=== PATIENT | male | born 1950 | race Caucasian/White ===

== ENCOUNTER 2017-09-01 16:41 | Inpatient (IN) | payer MEDICARE ==
[~2017-09-01] VITALS: Ht 177.8 cm; Wt 94.4 kg
[2017-09-01] VITALS (8 sets, daily range): BP systolic 122–158; BP diastolic 79–102; PULSE 92–106; RESP 16–20; TEMP 98.1–99.3; O2SAT 96–98
[~2017-09-01 16:41] MED LIST: CLOP75 PO; METO25 PO; NITR.4 SL; ROSU10 PO; ULTR50TA PO; [UNRECOGNIZED DRUG - CODE] PO
[2017-09-01] MEDS ORDERED: SODIUM CHLOR 0.9% 1000 ML INJ 1,000 ML IV SCH (16:54)
--- NOTE | 2017-09-01 16:58 | PD ---
HPI Chief Complaint: Abdominal Pain Time Seen by Provider: 16:54 Travel History International Travel<30 days: No Contact w/Intl Traveler<30days: No Traveled to known affect area: No History of Present Illness HPI 67-year-old male with history of hypertension, CAD, cardiac stent on Plavix, hypercholesterolemia, appendectomy at the age of 15, here for evaluation of abdominal pain/bloating and feeling dehydrated. Symptoms have been going on for the last 18 hours. Pain is currently mild, intermittently worse at times, no modifying factors. He denies fevers or chills. No nausea or vomiting. No urinary symptoms. Last bowel movement was earlier this morning and although appeared darker than normal, he denies melena or hematochezia. Reports that he had a colonoscopy and endoscopy about 5 years ago and reports that it was completely normal. PFSH Past Medical History Cardiovascular Problems: Yes (STENT 03/21/12) Chest Pain: Yes Diabetes: No Diminished Hearing: No Gastrointestinal Disorders: No Genitourinary: Yes (KIDNEY STONES) Hypertension: Yes Kidney Stones: Yes Musculoskeletal: No Neurologic: No Respiratory: No Past Surgical History Appendectomy: Yes Coronary Stent: Yes Other Surgery: Yes (APPENDECTOMY) Social History Alcohol Use: No Tobacco Use: No Substance Use: No Allergies-Medications (Allergen,Severity, Reaction): Coded Allergies: No Known Allergies (Unverified Adverse Reaction, Unknown, 09/01/17) Reported Meds & Prescriptions Reported Meds & Active Scripts Active Reported Amlodipine (Amlodipine Besylate) 5 Mg Tab 5 Mg PO DAILY Carvedilol 25 Mg Tab 25 Mg PO DAILY Carvedilol 12.5 Mg Tab 12.5 Mg PO BID Irbesartan 300 Mg Tab 300 Mg PO DAILY Plavix (Clopidogrel Bisulfate) 75 Mg Tab 75 Mg PO DAILY Rosuvastatin (Rosuvastatin Calcium) 20 Mg Tab 20 Mg PO DAILY Aspirin EC (Aspirin) 81 Mg Tabdr 81 Mg PO DAILY Review of Systems Except as stated in HPI: all other systems reviewed are Neg Physical Exam Narrative GENERAL: Well-developed, well-nourished, comfortable, no apparent distress. SKIN: Focused skin assessment warm/dry. HEAD: Atraumatic. Normocephalic. EYES: Pupils equal and round. Mild scleral icterus. ENT: No nasal bleeding or discharge. Mucous membranes pink and dry. NECK: Trachea midline. No JVD. CARDIOVASCULAR: Regular rate and rhythm. RESPIRATORY: No accessory muscle use. Clear to auscultation. Breath sounds equal bilaterally. GASTROINTESTINAL: Abdomen soft, mild distention with mild diffuse tenderness without peritoneal signs. Normal bowel sounds. MUSCULOSKELETAL: No obvious deformities. No clubbing. No cyanosis. No edema. NEUROLOGICAL: Awake and alert. No obvious cranial nerve deficits. Motor grossly within normal limits. Normal speech. PSYCHIATRIC: Appropriate mood and affect; insight and judgment normal. Data Data Last Documented VS Vital Signs Date Time Temp Pulse Resp B/P (MAP) Pulse Ox O2 Delivery O2 Flow Rate FiO2 09/01/17 18:07 92 20 158/79 (105) 98 Room Air 09/01/17 16:48 98.1 Orders Orders Complete Blood Count With Diff (09/01/17 16:54) Comprehensive Metabolic Panel (09/01/17 16:54) Lipase (09/01/17 16:54) Lactic Acid (09/01/17 16:54) Prothrombin Time / Inr (Pt) (09/01/17 16:54) Act Partial Throm Time (Ptt) (09/01/17 16:54) Urinalysis - C+S If Indicated (09/01/17 16:54) Ct Abd/Pel W Iv Contrast(Rout) (09/01/17 16:54) Iv Access Insert/Monitor (09/01/17 16:54) Ecg Monitoring (09/01/17 16:54) Oximetry (09/01/17 16:54) Sodium Chlor 0.9% 1000 Ml Inj (Ns 1000 M (09/01/17 16:54) Sodium Chloride 0.9% Flush (Ns Flush) (09/01/17 17:00) Iodixanol 320 Inj (Rad Ct) (Visipaque 32 (09/01/17 17:54) Lidocaine 2% Viscous (Xylocaine 2% Visco (09/01/17 18:30) Morphine Inj (Morphine Inj) (09/01/17 19:00) Labs Laboratory Tests Test 09/01/17 17:00 12 18:05 White Blood Count 12.3 TH/MM3 Red Blood Count 5.78 MIL/MM3 Hemoglobin 17.5 GM/DL Hematocrit 51.1 % Mean Corpuscular Volume 88.4 FL Mean Corpuscular Hemoglobin 30.2 PG Mean Corpuscular Hemoglobin Concent 34.2 % Red Cell Distribution Width 11.9 % Platelet Count 263 TH/MM3 Mean Platelet Volume 6.2 FL Neutrophils (%) (Auto) 87.9 % Lymphocytes (%) (Auto) 5.7 % Monocytes (%) (Auto) 6.1 % Eosinophils (%) (Auto) 0.2 % Basophils (%) (Auto) 0.1 % Neutrophils # (Auto) 10.9 TH/MM3 Lymphocytes # (Auto) 0.7 TH/MM3 Monocytes # (Auto) 0.7 TH/MM3 Eosinophils # (Auto) 0.0 TH/MM3 Basophils # (Auto) 0.0 TH/MM3 CBC Comment DIFF FINAL Differential Comment Prothrombin Time 10.0 SEC Prothromb Time International Ratio 1.0 RATIO Activated Partial Thromboplast Time 25.9 SEC Blood Urea Nitrogen 14 MG/DL Creatinine 1.70 MG/DL Random Glucose 132 MG/DL Total Protein 7.9 GM/DL Albumin 3.8 GM/DL Calcium Level 9.5 MG/DL Alkaline Phosphatase 117 U/L Aspartate Amino Transf (AST/SGOT) 17 U/L Alanine Aminotransferase (ALT/SGPT) 23 U/L Total Bilirubin 2.3 MG/DL Sodium Level 138 MEQ/L Potassium Level 4.0 MEQ/L Chloride Level 102 MEQ/L Carbon Dioxide Level 27.7 MEQ/L Anion Gap 8 MEQ/L Estimat Glomerular Filtration Rate 40 ML/MIN Lactic Acid Level 1.6 mmol/L Lipase 155 U/L Urine Collection Type CLEAN CATCH Urine Color YELLOW Urine Turbidity CLEAR Urine pH 6.0 Urine Specific [place] 1.021 Urine Protein 100 mg/dL Urine Glucose (UA) NEG mg/dL Urine Ketones TRACE mg/dL Urine Occult Blood SMALL Urine Nitrite NEG Urine Bilirubin SMALL Urine Leukocyte Esterase NEG Urine RBC 15-19 /hpf Urine WBC 0-2 /hpf Urine Squamous Epithelial Cells 0-5 /hpf Microscopic Urinalysis Comment CULT NOT INDICATED Urine Collection Time 18:05 [facility] Medical Decision Making Medical Screen Exam Complete: Yes Emergency Medical Condition: Yes Medical Record Reviewed: Yes Differential Diagnosis Gastritis, peptic ulcer disease, pancreatitis, hepatobiliary disease, mesenteric ischemia, AAA, colitis, bowel obstruction Narrative Course Initial vital signs show heart rate 106, blood pressure 157/102, pulse ox 97% on room air, oral temp of 98.1F. CBC: WBC 12.3, hemoglobin 17.5, hematocrit 51.1, platelets 263, neutrophils 88%. CMP is remarkable for creatinine 1.7, GFR 70 which is around his baseline, otherwise unremarkable. Lipase is 155. Lactic acid is 1.6 UA shows small occult blood, 15-[address] abdomen pelvis: CONCLUSION: 1. Dilated proximal small bowel loops with some fecalization of small bowel and distal decompression characteristic of a least a partial small bowel obstruction. 2. Colonic diverticulosis without diverticulitis. 3. Small nonobstructing right renal calculus. Gastric distention. Patient was made aware of all findings. NG tube was placed with 500 cc of initial grayish appearing output. This was left in place and set to low intermittent suction. Case discussed with hospitalist Dr. Collins who will admit the patient to her service. Procedures Procedure Narrative NG tube insertion: 2 cc of 2% lidocaine was placed in the right nare. 16 [place] Sump catheter was inserted into the right nare. When hooked up to wall suction approximately 500 cc of grayish material was aspirated. This was then set to low intermittent suction and left in place. Tolerated well. No complications. Diagnosis Primary Impression: Partial small bowel obstruction Additional Impression: Microscopic hematuria Admitting Information Admitting Physician Requests: Admit Kalyan Olivas MD Sep 01, 2017 16:58
[2017-09-01] MEDS ORDERED: SODIUM CHLORIDE 0.9% FLUSH 10 ML FLUSH IV FLUSH PRN ×2 (17:00→19:00)
[2017-09-01] MEDS ORDERED: ASPI81TA23 PO (17:01)
[2017-09-01] MEDS ORDERED: IRBE300T11 PO (17:01)
[2017-09-01] MEDS ORDERED: ROSU1TAB8 PO (17:01)
[2017-09-01] MEDS ORDERED: PLAV75TA29 PO (17:01)
[2017-09-01] MEDS ORDERED: CARV25TA PO (17:01)
[2017-09-01] MEDS ORDERED: CARV12.52 PO (17:01)
[2017-09-01] MEDS ORDERED: AMLO5TAB2 PO (17:01)
[2017-09-01 17:17] LABS: CHLORIDE 102 MEQ/L (98-107); SODIUM (NA) 138 MEQ/L (136-145)
[2017-09-01 17:21] LABS: ANION GAP 8 MEQ/L (5-15); BICARBONATE 27.7 MEQ/L (21.0-32.0)
[2017-09-01 17:22] LABS: BLOOD UREA NITROGEN 14 MG/DL (7-18)
[2017-09-01 17:23] LABS: APTT (PATIENT) 25.9 SEC (24.3-30.1)
[2017-09-01 17:24] LABS: ALT (GPT) 23 U/L (12-78); AST (GOT) 17 U/L (15-37); GLOMERULAR FILTRATION RATE 40 ML/MIN (>89)
[2017-09-01 17:26] LABS: TOTAL BILIRUBIN ADULT 2.3 MG/DL (0.2-1.0)
[2017-09-01 17:27] LABS: ALKALINE PHOSPHATASE 117 U/L (45-117)
[2017-09-01] MEDS ORDERED: IODIXANOL 320 MG/ML 10 ML VIAL (for Rad CT) IVCONTRAST ONE (17:54)
[2017-09-01 17:56] LABS: AUTOMATED NEUTROPHIL # 10.9 TH/MM3 (1.8-7.7); BASOPHIL % 0.1 % (0.0-2.0); EOSINOPHIL % 0.2 % (0.0-4.0); HEMATOCRIT 51.1 % (39.0-51.0); LYMPH % 5.7 % (9.0-44.0); LYMPHOCYTE # 0.7 TH/MM3 (1.0-4.8); MEAN CELL VOLUME 88.4 FL (80.0-100.0); MEAN CORPUSCULAR HEMOGLOBIN 30.2 PG (27.0-34.0); MEAN CORPUSCULAR HGB CONC 34.2 % (32.0-36.0); MONO % 6.1 % (0.0-8.0); NEUT % 87.9 % (16.0-70.0); PLATELET COUNT 263 TH/MM3 (150-450); RED BLOOD COUNT 5.78 MIL/MM3 (4.50-5.90); RED CELL DISTRIBUTION WIDTH 11.9 % (11.6-17.2); WHITE BLOOD COUNT 12.3 TH/MM3 (4.0-11.0)
[2017-09-01 17:59] LABS: HEMO FLAGS DIFF FINAL
--- NOTE | 2017-09-01 18:08 | RADRPT ---
EXAM DATE/TIME: 09/01/2017 17:45 [facility] COMPARISON: No previous studies available for comparison. INDICATIONS : Mid abdominal pain and bloating. IV CONTRAST: 50 cc Visipaque (iodixanol) IV ORAL CONTRAST: No oral contrast ingested. RADIATION DOSE: 17.55 CTDIvol (mGy) MEDICAL HISTORY : Cardiovascular disease. Renal calculi. Hypertension. SURGICAL HISTORY : Appendectomy. Coronary artery stent. ENCOUNTER: Initial ACUITY: 2 days PAIN SCALE: 8/10 LOCATION: Umbilical TECHNIQUE: Volumetric scanning of the abdomen and pelvis was performed. Using automated exposure control and ad justment of the mA and/or kV according to patient size, radiation dose was kept as low as reasonably achievable to obtain optimal diagnostic quality images. DICOM format image data is available electro nically for review and comparison. FINDINGS: Lung bases are clear. Calcified granuloma left lung base. No acute findings in the liver, spleen, adrenals or pancreas. Small nonobstructing right renal calcul us. No calcified gallstones or biliary ductal dilatation. There is a least a partial small bowel obstruction with acutely angulated bowel loops in the midabdom en possibly secondary to adhesion. Previous appendectomy. Colonic diverticulosis without diverticulitis. Distended stomach. CONCLUSION: 1. Dilated proximal small bowel loops with some fecalization of small bowel and distal decompression characteristic of a least a partial small bowel obstruction. 2. Colonic diverticulosis without diverticulitis. 3. Small nonobstructing right renal calculus. Gastric distention. Kieran Moya MD on September 01, 2017 at 18:01 Board Certified Radiologist. This report was verified electronically.
[2017-09-01 18:13] LABS: BLOOD, URINE SMALL (NEG); GLUCOSE,URINE NEG (NEG); KETONE, URINE TRACE mg/dL (NEG); NITRITE,URINE NEG (NEG)
[2017-09-01 18:19] LABS: METHOD OF COLLECTION CLEAN CATCH; URINE COLOR YELLOW (YELLW/STRAW)
[2017-09-01 18:20] LABS: COMMENT (UR) CULT NOT INDICATED; CULTURE IF INDICATED CULT NOT INDICATED; RBC, URINE 15-19 /hpf (0-3); SQUAMOUS EPITHELIAL CELL URINE 0-5 /hpf (0-5); WBC, URINE 0-2 /hpf (0-5)
[2017-09-01] MEDS ORDERED: LIDOCAINE VISCOUS 2% SOLN 15 ML UDC OTHER ONE (18:30)
[2017-09-01] MEDS: SODIUM CHLOR 0.9% 1000 ML INJ 1,000 ML IV SCH ×2 (19:00→22:30)
[2017-09-01] MEDS ORDERED: MORPHINE SULFATE 4 MG/ML INJ IV PUSH ONE (19:00)
[2017-09-01] MEDS ORDERED: ONDANSETRON HCL 4 MG/2 ML VIAL IVP PRN (19:00)
[2017-09-01] MEDS ORDERED: NALOXONE HCL 0.4 MG/ML AMP IV PUSH PRN (19:00)
[2017-09-01] MEDS ORDERED: ENALAPRILAT 1.25 MG/ML VIAL IV PRN (19:00)
[2017-09-01] MEDS: SODIUM CHLORIDE 0.9% FLUSH 10 ML FLUSH IV FLUSH SCH (22:27)
[2017-09-02] VITALS (7 sets, daily range): BP systolic 141–181; BP diastolic 89–111; PULSE 84–96; RESP 14–20; TEMP 97.4–99.6; O2SAT 93–97
--- NOTE | 2017-09-02 06:02 | RADRPT ---
EXAM DATE/TIME: 09/02/2017 05:44 [facility] COMPARISON: No previous studies available for comparison. INDICATIONS : Abdominal distension MEDICAL HISTORY : Cardiovascular disease. Renal calculi. Hypertension SURGICAL HISTORY : Appendectomy. Coronary artery stent. ENCOUNTER: Subsequent ACUITY: 2 days PAIN SCORE: 0/10 LOCATION: Bilateral abdomen FINDINGS: 2 AP supine views of the abdomen. Contrast is seen within the urinary bladder. Scattered gas and stoo l in nondilated colon. Multiple air-filled moderately dilated small bowel loops are seen in the midab domen. No abnormal abdominal calcification. Osseous structures within normal limits. Nasogastric tube in place in the stomach. CONCLUSION: Nonspecific bowel gas pattern with multiple moderately dilated gas-filled mid small bowel loops. Diff erential diagnosis includes ileus versus early or partial small bowel obstruction. Daryl Boland MD on September 02, 2017 at 5:57 Board Certified Radiologist. This report was verified electronically.
[2017-09-02 06:19] LABS: AUTOMATED NEUTROPHIL # 9.8 TH/MM3 (1.8-7.7); BASOPHIL % 0.2 % (0.0-2.0); EOSINOPHIL % 0.3 % (0.0-4.0); HEMATOCRIT 46.1 % (39.0-51.0); HEMO FLAGS DIFF FINAL; LYMPH % 9.1 % (9.0-44.0); LYMPHOCYTE # 1.1 TH/MM3 (1.0-4.8); MEAN CELL VOLUME 87.7 FL (80.0-100.0); MEAN CORPUSCULAR HEMOGLOBIN 29.6 PG (27.0-34.0); MEAN CORPUSCULAR HGB CONC 33.7 % (32.0-36.0); MONO % 8.4 % (0.0-8.0); PLATELET COUNT 242 TH/MM3 (150-450); RED BLOOD COUNT 5.26 MIL/MM3 (4.50-5.90); RED CELL DISTRIBUTION WIDTH 11.8 % (11.6-17.2); WHITE BLOOD COUNT 11.9 TH/MM3 (4.0-11.0)
[2017-09-02 06:25] LABS: POTASSIUM 4.5 MEQ/L (3.5-5.1)
[2017-09-02] MEDS: SODIUM CHLOR 0.9% 1000 ML INJ 1,000 ML IV SCH ×2 (06:36→21:12)
[2017-09-02] MEDS: SODIUM CHLORIDE 0.9% FLUSH 10 ML FLUSH IV FLUSH SCH ×2 (09:44→21:00)
--- NOTE | 2017-09-02 13:12 | HHI.HP ---
[facility] Ubaldo Gutierrez MD Admission Diagnosis Partial SBO Diagnoses: Chief Complaint: Abdominal pain Travel History International Travel<30 Days: No Contact w/Intl Traveler <30 Da: No Traveled to Known Affected Are: No History of Present Illness Patient is a 67-year-old gentleman with a history of coronary disease who came to the hospital complaining of severe acute onset of 10 out of 10 abdominal pain worse in the right lower quadrant. Is started suddenly after he ate at a local [employer] restaurant. He noted his stomach began to get bloated and he felt nauseated. He did not vomit. He does take Plavix and aspirin for coronary disease. He has not had any chest pain and he is not short of breath. Patient did have NG tube placed and over 1100 mL of ileus nonbloody fluid has been removed with great improvement in the distention and pain at the patient. He has also been given morphine IV which has helped with his pain. Patient is admitted to the hospital for clinical signs of obstruction versus ileus and for imaging which is consistent with the objective findings. Patient has been on bowel rest and feels much better although he is not completely resolved from symptoms. His last bowel movement was over 24 hours ago. Review of Systems Constitutional: DENIES: Diaphoretic episodes, Fatigue, Fever, Weight gain, Weight loss, Chills, Dizziness, Change in appetite, Night Sweats Endocrine: DENIES: Heat/cold intolerance, Polydipsia, Polyuria, Polyphagia Eyes: DENIES: Blurred vision, Diplopia, Eye inflammation, Eye pain, Vision loss , Photosensitivity, Double Vision Ears, nose, mouth, throat: DENIES: Tinnitus, Hearing loss, Vertigo, Nasal discharge, Oral lesions, Throat pain, Hoarseness, Ear Pain, Running Nose, Epistaxis, Sinus Pain, Toothache, Odynophagia Respiratory: DENIES: Apneas, Cough, Snoring, Wheezing, Hemoptysis, Sputum production, Shortness of breath Cardiovascular: DENIES: Chest pain, Palpitations, Syncope, Dyspnea on Exertion , PND, Lower Extremity Edema, Orthopnea, Claudication Gastrointestinal: COMPLAINS OF: Abdominal pain, DENIES: Black stools, Bloody stools, Constipation, Diarrhea, Nausea, Vomiting, Difficulty Swallowing, Anorexia Genitourinary: DENIES: Sexual dysfunction, Urinary frequency, Urinary incontinence, Urgency, Hematuria, Dysuria, Nocturia, Penile Discharge, Testicular Pain, Testicular Swelling Musculoskeletal: DENIES: Joint pain, Muscle aches, Stiffness, Joint Swelling, Back pain, Neck pain Integumentary: DENIES: Abnormal pigmentation, Nail changes, Pruritus, Rash Hematologic/lymphatic: DENIES: Bruising, Lymphadenopathy Immunologic/allergic: DENIES: Eczema, Urticaria Neurologic: DENIES: Abnormal gait, Headache, Localized weakness, Paresthesias, Seizures, Speech Problems, Tremor, Poor Balance Except as stated in HPI: all other systems reviewed are Neg Past Family Social History Past Medical History Coronary artery disease with stenting Past Surgical History Appendectomy Reported Medications Reviewed in the EMR, nothing new Allergies: Coded Allergies: No Known Allergies (Unverified Allergy, Unknown, 09/01/17) Family History Mother at 80 from stroke, father at 68 from a heart attack, sister is alive and well Social History No tobacco or alcohol dependency, lives alone and is retired [employer] Physical Exam Vital Signs Vital Signs Date Time Temp Pulse Resp B/P (MAP) Pulse Ox O2 Delivery O2 Flow Rate FiO2 09/02/17 08:12 95 21 09/02/17 08:00 99.2 84 16 155/99 (117) 95 09/02/17 00:00 98.2 91 16 141/89 (106) 94 09/01/17 21:50 96 21 09/01/17 21:38 82 18 97 09/01/17 21:20 122/81 (95) 09/01/17 20:11 94 16 146/92 (110) Room Air 09/01/17 20:00 99.3 96 18 152/88 (109) 98 09/01/17 19:13 99 16 136/95 (109) 97 Room Air 09/01/17 18:07 92 20 158/79 (105) 98 Room Air 09/01/17 17:02 96 Room Air 09/01/17 16:51 (120) 09/01/17 16:48 98.1 106 18 157/102 (120) 97 Room Air Physical Exam GENERAL: This is a well-nourished, well-developed patient, in no apparent distress. NG tube in place SKIN: No rashes, ecchymoses or lesions. Cool and dry. HEAD: Atraumatic. Normocephalic. No temporal or scalp tenderness. EYES: Pupils equal round and reactive. Extraocular motions intact. No scleral icterus. No injection or drainage. ENT: Nose without bleeding, purulent drainage or septal hematoma. Throat without erythema, tonsillar hypertrophy or exudate. Uvula midline. Airway patent. NECK: Trachea midline. No JVD or lymphadenopathy. Supple, nontender, no meningeal signs. CARDIOVASCULAR: Regular rate and rhythm without murmurs, gallops, or rubs. RESPIRATORY: Clear to auscultation. Breath sounds equal bilaterally. No wheezes , rales, or rhonchi. GASTROINTESTINAL: Abdomen soft, non-tender, nondistended. Hypoactive bowel sounds. No hepato-splenomegaly, or palpable masses. No guarding. MUSCULOSKELETAL: Extremities without clubbing, cyanosis, or edema. No joint tenderness, effusion, or edema noted. No calf tenderness. Negative Homans sign bilaterally. NEUROLOGICAL: Awake and alert. Cranial nerves II through XII intact. Motor and sensory grossly within normal limits. Five out of 5 muscle strength in all muscle groups. Normal speech. Laboratory Laboratory Tests Test 09/01/17 17:00 09/01/17 18:05 09/02/17 04:58 White Blood Count 12.3 11.9 Red Blood Count 5.78 5.26 Hemoglobin 17.5 15.6 Hematocrit 51.1 46.1 Mean Corpuscular Volume 88.4 87.7 Mean Corpuscular Hemoglobin 30.2 29.6 Mean Corpuscular Hemoglobin Concent 34.2 33.7 Red Cell Distribution Width 11.9 11.8 Platelet Count 263 242 Mean Platelet Volume 6.2 6.2 Neutrophils (%) (Auto) 87.9 82.0 Lymphocytes (%) (Auto) 5.7 9.1 Monocytes (%) (Auto) 6.1 8.4 Eosinophils (%) (Auto) 0.2 0.3 Basophils (%) (Auto) 0.1 0.2 Neutrophils # (Auto) 10.9 9.8 Lymphocytes # (Auto) 0.7 1.1 Monocytes # (Auto) 0.7 1.0 Eosinophils # (Auto) 0.0 0.0 Basophils # (Auto) 0.0 0.0 CBC Comment DIFF FINAL DIFF FINAL Differential Comment Prothrombin Time 10.0 Prothromb Time International Ratio 1.0 Activated Partial Thromboplast Time 25.9 Blood Urea Nitrogen 14 16 Creatinine 1.70 1.50 Random Glucose 132 107 Total Protein 7.9 Albumin 3.8 Calcium Level 9.5 8.8 Alkaline Phosphatase 117 Aspartate Amino Transf (AST/SGOT) 17 Alanine Aminotransferase (ALT/SGPT) 23 Total Bilirubin 2.3 Sodium Level 138 141 Potassium Level 4.0 4.5 Chloride Level 102 106 Carbon Dioxide Level 27.7 29.0 Anion Gap 8 6 Estimat Glomerular Filtration Rate 40 47 Lactic Acid Level 1.6 Lipase 155 Urine Collection Type CLEAN CATCH Urine Color YELLOW Urine Turbidity CLEAR Urine pH 6.[address] [place] 1.021 Urine Protein 100 Urine Glucose (UA) NEG Urine Ketones TRACE Urine Occult Blood SMALL Urine Nitrite NEG Urine Bilirubin SMALL Urine Leukocyte Esterase NEG Urine RBC 15-19 Urine WBC 0-2 Urine Squamous Epithelial Cells 0-5 Microscopic Urinalysis Comment CULT NOT INDICATED Urine Collection Time 18:05 Result Diagram: 09/02/17 0458 09/02/17 0458 Imaging Last Impressions Abdomen X-Ray 09/02/17 0000 Signed Impressions: Service Date/Time: Saturday, September 02, 2017 05:44 - CONCLUSION: Nonspecific bowel gas pattern with multiple moderately dilated gas-filled mid small bowel loops. Differential diagnosis includes ileus versus early or partial small bowel obstruction. Daryl Boland MD Abdomen/Pelvis CT 09/01/17 1654 Signed Impressions: Service Date/Time: August 17:45 - CONCLUSION: 1. Dilated proximal small bowel loops with some fecalization of small bowel and distal decompression characteristic of a least a partial small bowel obstruction. 2. Colonic diverticulosis without diverticulitis. 3. Small nonobstructing right renal calculus. Gastric distention. Kieran Moya MD Caprini VTE Risk Assessment Caprini VTE Risk Assessment: Mod/High Risk (score >= 2) Caprini Risk Assessment Model Point Value = 1 Point Value = 2 Point Value = 3 Point Value = 5 Age 41-60 Minor surgery BMI > 25 kg/m2 Swollen legs Varicose veins or History of unexplained or recurrent spontaneous Oral contraceptives or hormone replacement Sepsis (< 1 month) Serious lung disease, including pneumonia (< 1 month) Abnormal pulmonary function Acute myocardial infarction Congestive heart failure (< 1 month) History of inflammatory bowel disease Medical patient at bed rest Age 61-74 Arthroscopic surgery Major open surgery (> 45 min) Laparoscopic surgery (> 45 min) Malignancy Confined to bed (> 72 hours) Immobilizing plaster cast Central venous access Age >= 75 History of VTE Family history of VTE Factor V Leiden Prothrombin [id number] Lupus anticoagulant Anticardiolipin antibodies Elevated serum homocysteine Heparin-induced thrombocytopenia Other congenital or acquired thrombophilia Stroke (< 1 month) Elective arthroplasty Hip, pelvis, or leg fracture Acute spinal cord injury (< 1 month) Prophylaxis Regimen Total Risk Factor Score Risk Level Prophylaxis Regimen 0-1 Low Early ambulation 2 Moderate Order ONE of the following: *Sequential Compression Device (SCD) *Heparin 5000 units SQ BID 3-4 Higher Order ONE of the following medications: *Heparin 5000 units SQ TID *Enoxaparin/Lovenox 40 mg SQ daily (WT < 150 kg, CrCl > 30 mL/min) *Enoxaparin/Lovenox 30 mg SQ daily (WT < 150 kg, CrCl > 10-29 mL/min) *Enoxaparin/Lovenox 30 mg SQ BID (WT < 150 kg, CrCl > 30 mL/min) AND/OR *Sequential Compression Device (SCD) 5 or more Highest Order ONE of the following medications: *Heparin 5000 units SQ TID (Preferred with Epidurals) *Enoxaparin/Lovenox 40 mg SQ daily (WT < 150 kg, CrCl > 30 mL/min) *Enoxaparin/Lovenox 30 mg SQ daily (WT < 150 kg, CrCl > 10-29 mL/min) *Enoxaparin/Lovenox 30 mg SQ BID (WT < 150 kg, CrCl > 30 mL/min) AND *Sequential Compression Device (SCD) Assessment and Plan Problem List: (1) Partial small bowel obstruction ICD Code: K56.600 - Partial intestinal obstruction, unspecified as to cause Status: Acute Plan: Continue nothing by mouth status, follow NG tube output General surgery consult pending Follow-up x-ray in a.m. ppi (2) HTN (hypertension) ICD Code: I10 - Essential (primary) hypertension Plan: IV Vasotec scheduled while patient nothing by mouth When able to tolerate medications we'll resume home meds (3) CAD (coronary artery disease) ICD Code: I25.10 - Atherosclerotic heart disease of [place] coronary artery without angina pectoris Plan: Continue observation for now Will hold beta corrina and Plavix/aspirin for now while nothing by mouth Assessment and Plan [id number] Code Status full code Physician Certification 2 Midnight Certification Type: Admission for Inpatient Services Order for Inpatient Services The services are ordered in accordance with Medicare regulations or non- Medicare payer requirements, as applicable. In the case of services not specified as inpatient-only, they are appropriately provided as inpatient services in accordance with the 2-midnight benchmark. Estimated LOS (days): 3 3 days is the estimated time the patient will need to remain in the hospital, assuming treatment plan goals are met and no additional complications. Post-Hospital Plan: Tammy Martinez MD Sep 02, 2017 13:12
[2017-09-02] MEDS: ENALAPRILAT 1.25 MG/ML VIAL IV SCH ×2 (13:50→20:59)
[2017-09-02] MEDS: MORPHINE SULFATE 4 MG/ML INJ IV PUSH PRN ×3 (13:57→20:59)
[2017-09-02] MEDS: HEPARIN SODIUM - SQ 10,000 UNITS/ML VIAL SQ SCH ×3 (14:00→21:00)
[2017-09-02] MEDS: PANTOPRAZOLE SODIUM 40 MG VIAL IV PUSH SCH (15:54)
[2017-09-02 18:16] LABS: HEMATOCRIT 47.3 % (39.0-51.0); REVIEW FLAG FINAL
[2017-09-03] VITALS (7 sets, daily range): BP systolic 139–185; BP diastolic 86–109; PULSE 86–98; RESP 16–20; TEMP 98–99.8; O2SAT 92–97
[2017-09-03] MEDS: HEPARIN SODIUM - SQ 10,000 UNITS/ML VIAL SQ SCH ×3 (05:18→21:28)
[2017-09-03] MEDS: ENALAPRILAT 1.25 MG/ML VIAL IV SCH ×3 (05:18→21:27)
[2017-09-03] MEDS: SODIUM CHLOR 0.9% 1000 ML INJ 1,000 ML IV SCH ×3 (05:18→21:27)
[2017-09-03] MEDS: MORPHINE SULFATE 4 MG/ML INJ IV PUSH PRN ×3 (05:19→21:29)
[2017-09-03 07:50] LABS: AUTOMATED NEUTROPHIL # 6.7 TH/MM3 (1.8-7.7); BASOPHIL % 0.3 % (0.0-2.0); EOSINOPHIL # 0.1 TH/MM3 (0-0.4); EOSINOPHIL % 0.8 % (0.0-4.0); HEMATOCRIT 43.3 % (39.0-51.0); LYMPH % 9.3 % (9.0-44.0); LYMPHOCYTE # 0.8 TH/MM3 (1.0-4.8); MEAN CELL VOLUME 87.8 FL (80.0-100.0); MEAN CORPUSCULAR HEMOGLOBIN 29.4 PG (27.0-34.0); MEAN CORPUSCULAR HGB CONC 33.5 % (32.0-36.0); MONO % 13.3 % (0.0-8.0); NEUT % 76.3 % (16.0-70.0); PLATELET COUNT 186 TH/MM3 (150-450); RED BLOOD COUNT 4.92 MIL/MM3 (4.50-5.90); RED CELL DISTRIBUTION WIDTH 11.5 % (11.6-17.2); WHITE BLOOD COUNT 8.8 TH/MM3 (4.0-11.0)
[2017-09-03 07:57] LABS: HEMO FLAGS DIFF FINAL
[2017-09-03 07:59] LABS: BICARBONATE 25.8 MEQ/L (21.0-32.0)
--- NOTE | 2017-09-03 08:04 | MB ---
cc: MANDY HOLLIS MD DATE OF CONSULTATION: 09/02/2017 REASON FOR CONSULTATION: Partial small-bowel obstruction. HISTORY OF PRESENT ILLNESS The patient is 67-year-old male coronary artery disease came to the hospital with acute onset of severe abdominal pain. He states pain was in the right lower quadrant and had developed after eating some [employer] food. He also complains of some distension and nausea but had no vomiting. This started approximately Tuesday and progressively got worse. He stated the pain was somewhat achy and radiation diffusely. It is currently a 12/27 and has improved with some IV fluids and pain medication. He also had NG tube placed with 1100 cc of contents. The patient does have a history of the appendectomy, otherwise no other surgical issue. PAST MEDICAL HISTORY Coronary disease status post stent. PAST SURGICAL HISTORY Appendectomy. MEDICATIONS See EMR. 1. Aspirin. 2. Plavix. ALLERGIES NO KNOWN DRUG ALLERGIES. SOCIAL HISTORY Denies smoking, EtOH or IVDA. FAMILY HISTORY Mother with CVA. Father ME. REVIEW OF SYSTEMS GENERAL: Denies fevers, chills. HEENT: Denies eye pain, ear pain that denies swelling or pain. LUNGS: Denies cough or wheeze. HEART: Denies palpitations, chest pain. ABDOMEN: Complained of nausea, denies vomiting. Complained abdominal pain. GENITOURINARY: Denies dysuria, hematuria. ENDOCRINE: Denies polyuria, polydipsia. MUSCULOSKELETAL: Denies arthralgia, myalgia. INTEGUMENT: Denies pigmentation or acute skin changes. HEMATOLOGIC: Denies bruising, bleeding. NEUROLOGIC: Denies numbness or tingling. PHYSICAL EXAMINATION IN GENERAL: The patient in no acute distress. VITAL SIGNS: Temperature 98.2, pulse 91, respirations 16, blood pressure 141/89, saturation 94%. HEAD, EYES, EARS, NOSE, AND THROAT: Pupils equal round reactive. NECK: Supple. Trachea midline. LUNGS: Clear to auscultation bilateral expansion. HEART: S1-S2 regular rhythm. ABDOMEN: Soft, mild distension with mild tenderness to palpation. No rebound or guarding. EXTREMITIES: Warm, well-perfused. NEUROLOGIC: 5/5 motor all extremities. GCS 15. INTEGUMENT: No obvious masses or lesions. LABORATORY AND DIAGNOSTIC DATA WBC 12.3, hemoglobin 17.5 and 51.1, platelets 263, sodium 138, potassium four, chloride 102 p.o. and eight, creatinine 1.7, lactate 1.6, bilirubin 2.3, AST 17, ALT 23, lipase 155, INR 1. CT reviewed by myself showing dilated small bowel with some equalization distal decompression concern for partial obstruction some diverticulosis and identified renal stone. ASSESSMENT The patient is 67-year-old male partial small-bowel obstruction. PLAN A full clinical radiologic laboratory workup the patient above-named issues including bowel obstruction currently the patient an NG tube repair with this to a low intermittent suction. We will continue serial abdominal exams observe nonoperative management for now will obtain small bowel follow-through to assess the small bowel and identify the patient any definitive transition. Will continue to follow. Thank you for consultation. MD BRISA Rivers/kaleigh /7:23 AM /7:56 AM
[2017-09-03] MEDS: SODIUM CHLORIDE 0.9% FLUSH 10 ML FLUSH IV FLUSH SCH ×2 (12:26→21:27)
[2017-09-03] MEDS: PANTOPRAZOLE SODIUM 40 MG VIAL IV PUSH SCH (13:03)
--- NOTE | 2017-09-03 14:09 | HHI.PR ---
Subjective Remarks Patient seen and evaluated today in follow-up for partial small bowel obstruction. Patient reports flatus without bowel movement (bowel movements documented however patient denies) No nausea Discussed with patient and significant other Objective Vitals Vital Signs Date Time Temp Pulse Resp B/P (MAP) Pulse Ox O2 Delivery O2 Flow Rate FiO2 09/03/17 12:00 98.4 94 16 185/109 (134) 95 09/03/17 08:00 98.7 88 18 142/86 (104) 94 09/03/17 00:00 99.0 94 20 139/94 (109) 94 09/02/17 20:35 95 21 09/02/17 20:00 99.2 96 20 181/98 (125) 93 09/02/17 18:29 18 09/02/17 16:00 99.6 95 14 152/111 (125) 97 I/O 09/02/17 09/02/17 09/02/17 09/03/17 09/03/17 09/03/17 07:00 15:00 23:00 07:00 15:00 23:00 Intake Total 1000 ml 0 ml 1500 ml Output Total 250 ml 625 ml 1250 ml 350 ml Balance 750 ml -625 ml -1250 ml 1150 ml Intake Oral 0 ml 0 ml IV Total 1000 ml 1500 ml Output Urine Total 250 ml 625 ml 900 ml 300 ml Gastric Drainage Total 350 ml 50 ml # Voids 2 # Bowel Movements 0 2 Result Diagram: 09/03/17 0710 09/03/17 0710 Objective Remarks GENERAL: This is a well-nourished, well-developed patient, in no apparent distress. CARDIOVASCULAR: Regular rate and rhythm without murmurs, gallops, or rubs. RESPIRATORY: Clear to auscultation. Breath sounds equal bilaterally. No wheezes , rales, or rhonchi. GASTROINTESTINAL: Abdomen soft, non-tender, nondistended. Normal active bowel sounds MUSCULOSKELETAL: Extremities without clubbing, cyanosis, or edema. NEURO: Alert & Oriented x4 to person, place, time, situation. Moves all ext x4 A/P Problem List: (1) Partial small bowel obstruction ICD Code: K56.600 - Partial intestinal obstruction, unspecified as to cause Status: Acute Plan: Continue nothing by mouth status, follow NG tube output General surgery consult appreciated Follow-up small bowel series (2) HTN (hypertension) ICD Code: I10 - Essential (primary) hypertension Plan: IV Vasotec scheduled while patient nothing by mouth When able to tolerate medications we'll resume home meds (3) CAD (coronary artery disease) ICD Code: I25.10 - Atherosclerotic heart disease of [place] coronary artery without angina pectoris Plan: Continue observation for now Will hold beta corrina and Plavix/aspirin for now while nothing by mouth Tammy Collins MD Sep 03, 2017 14:09
--- NOTE | 2017-09-03 17:51 | RADRPT ---
EXAM DATE/TIME: 09/03/2017 15:47 [facility] COMPARISON: No previous studies available for comparison. INDICATIONS : Small bowel obstruction. FLUORO TIME: 0 minutes IMAGE COUNT: 13 CONTRAST: Gastrodominick IMAGING TIME(S): 15 min, 30 min, 45 min, 1 hr MEDICAL HISTORY : Cardiovascular disease. Renal calculi. Hypertension. SURGICAL HISTORY : Appendectomy. Coronary artery stent. ENCOUNTER: Subsequent ACUITY: 3 days PAIN SCORE: 0/10 LOCATION: Bilateral Abdomen FINDINGS: Small bowel is dilated proximally with distal decompression. Contrast does reached the colon. No free air. CONCLUSION: 1. Partial small bowel obstruction. Kieran Moya MD on September 03, 2017 at 17:48 Board Certified Radiologist. This report was verified electronically.
[2017-09-04] VITALS: BP 180/95; PULSE 99; RESP 20; TEMP 99.1; O2SAT 94
[2017-09-04] MEDS ORDERED: ENALAPRILAT 1.25 MG/ML VIAL IV PUSH ONE (00:15)
[2017-09-04] MEDS: HEPARIN SODIUM - SQ 10,000 UNITS/ML VIAL SQ SCH ×3 (04:55→21:07)
[2017-09-04] MEDS: ENALAPRILAT 1.25 MG/ML VIAL IV SCH ×4 (04:56→21:07)
[2017-09-04] MEDS: SODIUM CHLOR 0.9% 1000 ML INJ 1,000 ML IV SCH ×3 (07:21→18:00)
[2017-09-04 08:00] VITALS: BP 172/88; PULSE 80; RESP 16; TEMP 98; O2SAT 95
[2017-09-04] MEDS: SODIUM CHLORIDE 0.9% FLUSH 10 ML FLUSH IV FLUSH SCH ×2 (08:53→21:08)
--- NOTE | 2017-09-04 09:09 | HHI.PR ---
Subjective Remarks Patient seen and evaluated today in follow-up for partial small bowel obstruction. Reports "lots and lots of bowel movements all night". Small bowel series that show partial bowel obstruction. Patient says his abdomen is a lot less tender and less distended. No new events today. Blood pressure has been a little bit elevated Objective Vitals Vital Signs Date Time Temp Pulse Resp B/P (MAP) Pulse Ox O2 Delivery O2 Flow Rate FiO2 09/04/17 08:00 98.0 80 16 172/88 (116) 95 09/04/17 00:00 99.1 99 20 180/95 (123) 94 09/03/17 22:29 20 09/03/17 20:00 99.8 98 20 171/100 (123) 97 09/03/17 19:51 97 21 09/03/17 16:00 98.0 91 19 176/97 (123) 92 09/03/17 14:19 86 142/96 (111) 09/03/17 12:00 98.4 94 16 185/109 (134) 95 I/O 09/03/17 09/03/17 09/03/17 09/04/17 09/04/17 09/04/17 07:00 15:00 23:00 07:00 15:00 23:00 Intake Total 1500 ml 1001 ml 901 ml 0 ml 1000 ml Output Total 350 ml 375 ml Balance 1150 ml 1001 ml 526 ml 0 ml 1000 ml Intake Oral 0 ml 0 ml IV Total 1500 ml 1001 ml 901 ml 1000 ml Output Urine Total 300 ml 300 ml Gastric Drainage Total 50 ml 75 ml # Voids 3 # Bowel Movements 3 Result Diagram: 09/03/17 0710 09/03/17 0710 Objective Remarks GENERAL: This is a well-nourished, well-developed patient, in no apparent distress. CARDIOVASCULAR: Regular rate and rhythm without murmurs, gallops, or rubs. RESPIRATORY: Clear to auscultation. Breath sounds equal bilaterally. No wheezes , rales, or rhonchi. GASTROINTESTINAL: Abdomen soft, non-tender, nondistended. Normal active bowel sounds MUSCULOSKELETAL: Extremities without clubbing, cyanosis, or edema. NEURO: Alert & Oriented x4 to person, place, time, situation. Moves all ext x4 A/P Problem List: (1) Partial small bowel obstruction ICD Code: K56.600 - Partial intestinal obstruction, unspecified as to cause Status: Acute Plan: Continue nothing by mouth status, Clamp NG tube, ambulate (2) HTN (hypertension) ICD Code: I10 - Essential (primary) hypertension Plan: IV Vasotec scheduled while patient nothing by mouth Increase to every 6 When able to tolerate medications we'll resume home meds (3) CAD (coronary artery disease) ICD Code: I25.10 - Atherosclerotic heart disease of [place] coronary artery without angina pectoris Plan: Continue observation for now Will hold beta corrina and Plavix/aspirin for now while nothing by mouth Discharge Planning Clamp NG tube, consider advancing diet later today and follow overnight Tammy Collins MD Sep 04, 2017 09:09
[2017-09-04 12:00] VITALS: BP_SYST 176; BP_SYST 196; BP_SYST 198; BP_DIAS 102; BP_DIAS 91; PULSE 91; RESP 16; TEMP 98.4; O2SAT 95
[2017-09-04] MEDS: PANTOPRAZOLE SODIUM 40 MG VIAL IV PUSH SCH (13:02)
[2017-09-04 16:00] VITALS: BP 166/93; PULSE 77; RESP 16; TEMP 97.3; O2SAT 98
[2017-09-04 20:00] VITALS: BP 160/95; PULSE 83; RESP 20; TEMP 99.5; O2SAT 98
[2017-09-05] VITALS: BP 152/92; PULSE 85; RESP 18; TEMP 98.3; O2SAT 98
[2017-09-05] MEDS: ENALAPRILAT 1.25 MG/ML VIAL IV SCH ×2 (02:17→08:48)
[2017-09-05] MEDS: SODIUM CHLOR 0.9% 1000 ML INJ 1,000 ML IV SCH (02:48)
[2017-09-05 04:00] VITALS: BP 139/90; PULSE 82; RESP 16; TEMP 99.2; O2SAT 96
[2017-09-05] MEDS: HEPARIN SODIUM - SQ 10,000 UNITS/ML VIAL SQ SCH (05:55)
[2017-09-05] MEDS: SODIUM CHLORIDE 0.9% FLUSH 10 ML FLUSH IV FLUSH SCH (08:48)
[2017-09-05 09:46] VITALS: BP 145/70; PULSE 78; RESP 15; TEMP 98.5; O2SAT 95
[2017-09-05 09:47] VITALS: BP 170/95; PULSE 92; RESP 16; TEMP 99.2; O2SAT 96
[2017-09-05] MEDS ORDERED: MORPHINE SULFATE 2 MG/ML INJ IV PUSH PRN (10:00)
[2017-09-05] MEDS ORDERED: ASPIRIN EC 81 MG TABEC PO SCH (10:30)
[2017-09-05] MEDS ORDERED: amLODIPine BESYLATE 5 MG TAB PO SCH (10:30)
[2017-09-05] MEDS ORDERED: CARVEDILOL 12.5 MG TAB PO SCH ×2 (10:30)
[2017-09-05] MEDS ORDERED: CLOPIDOGREL 75 MG TAB PO SCH (10:30)
[2017-09-05] MEDS ORDERED: LOSARTAN 50 MG TAB PO SCH (10:45)
[2017-09-05] MEDS ORDERED: DIATRIZOATE MEGLUM/DIATRIZOATE SOD 120 ML BTL (for RAD DIAG) PO ONE (11:15)
--- NOTE | 2017-09-05 11:44 | HHI.DCPOC ---
Discharge Care Plan Diagnosis: (1) Partial small bowel obstruction (2) HTN (hypertension) Goals to Promote Your Health * To prevent worsening of your condition and complications * To maintain your health at the optimal level Directions to Meet Your Goals Take your medications as prescribed Follow your dietary instruction Follow activity as directed Keep your appointments as scheduled Take your immunizations and boosters as scheduled If your symptoms worsen call your PCP, if no PCP go to Urgent Care Center or Emergency Room Smoking is Dangerous to Your Health. Avoid second hand smoke Call the 24-hour hour crisis hotline for domestic abuse at Tammy Collins MD Sep 05, 2017 11:44
--- NOTE | 2017-09-05 11:46 | HHI.DS ---
Discharge Summary Admission Date Sep 01, 2017 at 18:58 Discharge Date: Sep 05, 2017 Admitting Diagnosis Partial SBO (1) Partial small bowel obstruction ICD Code: K56.600 - Partial intestinal obstruction, unspecified as to cause Status: Acute (2) HTN (hypertension) ICD Code: I10 - Essential (primary) hypertension (3) CAD (coronary artery disease) ICD Code: I25.10 - Atherosclerotic heart disease of [place] coronary artery without angina pectoris Procedures None Brief History - From Admission Patient is a 67-year-old gentleman with a history of coronary disease who came to the hospital complaining of severe acute onset of 10 out of 10 abdominal pain worse in the right lower quadrant. Is started suddenly after he ate at a local [employer] restaurant. He noted his stomach began to get bloated and he felt nauseated. He did not vomit. He does take Plavix and aspirin for coronary disease. He has not had any chest pain and he is not short of breath. Patient did have NG tube placed and over 1100 mL of ileus nonbloody fluid has been removed with great improvement in the distention and pain at the patient. He has also been given morphine IV which has helped with his pain. Patient is admitted to the hospital for clinical signs of obstruction versus ileus and for imaging which is consistent with the objective findings. Patient has been on bowel rest and feels much better although he is not completely resolved from symptoms. His last bowel movement was over 24 hours ago. CBC/BMP: 09/03/17 0710 09/03/17 0710 Significant Findings Laboratory Tests Test 09/02/17 17:50 09/03/17 07:10 Red Cell Distribution Width 11.5 % (11.6-17.2) Mean Platelet Volume 6.0 FL (7.0-11.0) Neutrophils (%) (Auto) 76.3 % (16.0-70.0) Monocytes (%) (Auto) 13.3 % (0.0-8.0) Lymphocytes # (Auto) 0.8 TH/MM3 (1.0-4.8) Monocytes # (Auto) 1.2 TH/MM3 (0-0.9) Blood Urea Nitrogen 20 MG/DL (7-18) Creatinine 1.40 MG/DL (0.60-1.30) Calcium Level 8.1 MG/DL (8.5-10.1) Estimat Glomerular Filtration Rate 51 ML/MIN (>89) Imaging Last Impressions Small Bowel X-Ray 09/03/17 0600 Signed Impressions: Service Date/Time: Sunday, September 03, 2017 15:47 - CONCLUSION: 1. Partial small bowel obstruction. Kieran Moya MD Abdomen X-Ray 09/02/17 0000 Signed Impressions: Service Date/Time: Saturday, September 02, 2017 05:44 - CONCLUSION: Nonspecific bowel gas pattern with multiple moderately dilated gas-filled mid small bowel loops. Differential diagnosis includes ileus versus early or partial small bowel obstruction. Daryl Boland MD Abdomen/Pelvis CT 09/01/17 1654 Signed Impressions: Service Date/Time: August 17:45 - CONCLUSION: 1. Dilated proximal small bowel loops with some fecalization of small bowel and distal decompression characteristic of a least a partial small bowel obstruction. 2. Colonic diverticulosis without diverticulitis. 3. Small nonobstructing right renal calculus. Gastric distention. Kieran Moya MD PE at Discharge GENERAL: This is a well-nourished, well-developed patient, in no apparent distress. CARDIOVASCULAR: Regular rate and rhythm without murmurs, gallops, or rubs. RESPIRATORY: Clear to auscultation. Breath sounds equal bilaterally. No wheezes , rales, or rhonchi. GASTROINTESTINAL: Abdomen soft, non-tender, nondistended. Normal active bowel sounds MUSCULOSKELETAL: Extremities without clubbing, cyanosis, or edema. NEURO: Alert & Oriented x4 to person, place, time, situation. Moves all ext x4 Pt update on day of discharge Patient seen and evaluated. Tolerating diet. No further abdominal pain Discharge plans discussed with patient and significant other as well as Jose L RN Hospital Course Patient is a 67-year-old gentleman who had abdominal pain and found to have a partial small bowel obstruction. The patient's structure resolved with medical management with IV fluids, bowel rest and NG tube for decompression. He had bowel movements and his pain resolved. Patient tolerating his diet. He was seen in consultation by general surgery Pt Condition on Discharge: Good Discharge Disposition: Discharge Home Discharge Time: <= 30 minutes Discharge Instructions DIET: Follow Instructions for: As Tolerated, No Restrictions Activities you can perform: Regular-No Restrictions Follow up Referrals: PCP Follow-up - 1 Week with Francoise Continued Medications: Amlodipine (Amlodipine) 5 Mg Tab 5 MG PO DAILY for Blood Pressure Management, #30 TAB [address] (Aspirin EC) 81 Mg Tabdr 81 MG PO DAILY, TAB 0 Refills Carvedilol (Carvedilol) 12.5 Mg Tab 12.5 MG PO BID, #60 TAB 0 Refills Carvedilol (Carvedilol) 25 Mg Tab 25 MG PO DAILY, #60 TAB 0 Refills Clopidogrel (Plavix) 75 Mg Tab 75 MG PO DAILY for Blood Clot Prevention, #30 TAB 0 Refills Irbesartan (Irbesartan) 300 Mg Tab 300 MG PO DAILY for Blood Pressure Management, #30 TAB 0 Refills Rosuvastatin (Rosuvastatin) 20 Mg Tab 20 MG PO DAILY for Cholesterol Management, #30 TAB 0 Refills Tammy Collins MD Sep 05, 2017 11:46
[2017-09-05 14:01] VITALS: BP 146/87; PULSE 87
[2017-09-06] MEDS ORDERED: ATORVASTATIN 40 MG TAB PO SCH (09:00)
== END 2017-09-05 13:15 | disposition home or self-care (01) | DRG 390 ==
LOC: PHED 16:41 → PHEDA 18:58 → PH3A 21:21
PROVIDERS: ADMIT Hospitalist; ATTEND Hospitalist
DX: K56.600 Partial intestinal obstruction, unspecified as to cause (principal); I10 Essential (primary) hypertension; I25.10 Atherosclerotic heart disease of native coronary artery without angina pectoris; E78.00 Pure hypercholesterolemia, unspecified; N20.0 Calculus of kidney; Z95.5 Presence of coronary angioplasty implant and graft
CPT/HCPCS: 43753; 74000; 74177; 74250; 80048; 80053; 81001; 83605; 83690; 85014; 85018; 85025; 85610; 85730; 86850; 86900; 86901; 96360; 96361; C9113; J1644; J2270; J7030; Q9963; Q9967